=== PATIENT | male | born 1940 | race Caucasian/White ===

== ENCOUNTER 2016-12-23 09:30 | Inpatient (IN) | payer MEDICARE ==
[~2016-12-23] VITALS: Ht 175.3 cm; Wt 82.7 kg
[~2016-12-23 09:30] MED LIST: [UNRECOGNIZED DRUG - CODE] PO
[2016-12-23] MEDS ORDERED: ASPI-147 PO (15:29)
[2016-12-23] MEDS ORDERED: ROSU20 PO (15:29)
[2016-12-23] MEDS ORDERED: PLAV75TA29 PO (15:29)
[2016-12-24] MEDS ORDERED: METOPROLOL TARTRATE 25 MG TAB PO PRN (06:45)
[2016-12-24] MEDS ORDERED: INSULIN HUMAN REGULAR 1,000 UNITS/10 ML VIAL SQ PRN (06:45)
[2016-12-24] MEDS ORDERED: ceFAZolin 1,000 MG/NS 100 ML IV SCH ×2 (06:45)
[2016-12-24] MEDS: SODIUM CHLORID 0.9% 500 ML IV SCH ×2 (06:45→23:25)
[2016-12-24] MEDS: LACTATED RINGER'S 1000 ML IV SCH (07:00)
[2016-12-24 07:05] VITALS: BP 163/90; PULSE 67; RESP 20; TEMP 97.5; O2SAT 99
[2016-12-24 07:05] LABS: AUTOMATED NEUTROPHIL # 4.8 TH/MM3 (1.8-7.7); BASOPHIL # 0.1 TH/MM3 (0-0.2); BASOPHIL % 0.8 % (0.0-2.0); EOSINOPHIL # 0.2 TH/MM3 (0-0.4); EOSINOPHIL % 2.2 % (0.0-4.0); HEMATOCRIT 43.3 % (39.0-51.0); HEMO FLAGS DIFF FINAL; LYMPH % 32.4 % (9.0-44.0); LYMPHOCYTE # 2.8 TH/MM3 (1.0-4.8); MEAN CELL VOLUME 84.1 FL (80.0-100.0); MEAN CORPUSCULAR HEMOGLOBIN 28.3 PG (27.0-34.0); MEAN CORPUSCULAR HGB CONC 33.6 % (32.0-36.0); MONO % 9.7 % (0.0-8.0); NEUT % 54.9 % (16.0-70.0); PLATELET COUNT 225 TH/MM3 (150-450); RED BLOOD COUNT 5.15 MIL/MM3 (4.50-5.90); RED CELL DISTRIBUTION WIDTH 13.9 % (11.6-17.2); WHITE BLOOD COUNT 8.7 TH/MM3 (4.0-11.0)
[2016-12-24 07:17] LABS: APTT (PATIENT) 27.5 SEC (24.3-30.1); PROTHROMBIN TIME - PATIENT 10.5 SEC (9.8-11.6)
[2016-12-24 07:20] LABS: BICARBONATE 26.4 MEQ/L (21.0-32.0); POTASSIUM 4.2 MEQ/L (3.5-5.1)
[2016-12-24] MEDS ORDERED: BUPIVACAINE/EPINEPHRINE 0.5% PF 30 ML VIAL ONE (07:36)
[2016-12-24] MEDS ORDERED: HEPARIN SODIUM - IV 10,000 UNITS/10 ML VIAL ONE (07:36)
[2016-12-24] MEDS ORDERED: HEPARIN SODIUM - SQ 10,000 UNITS/ML VIAL ONE (07:36)
[2016-12-24] MEDS ORDERED: PROTAMINE SULFATE 50 MG/5 ML VIAL ONE (07:37)
[2016-12-24] MEDS ORDERED: MIDAZOLAM HCL 2 MG/2 ML VIAL ONE (08:08)
[2016-12-24] MEDS ORDERED: FAMOTIDINE 20 MG/2 ML VIAL ONE (08:08)
[2016-12-24] MEDS ORDERED: DEXAMETHASONE SOD PHOS 4 MG/ML VIAL ONE (08:09)
[2016-12-24] MEDS ORDERED: *morphine SULFATE 8 MG/ML PERIprocedure ONLY ONE (11:13)
[2016-12-24] MEDS ORDERED: DO NOT ADM ANY ANTICOAGULANT DRUGS XX PRN (11:16)
[2016-12-24] MEDS ORDERED: fentaNYL CITRATE 250 MCG/5 ML AMP ONE (11:21)
[2016-12-24] MEDS ORDERED: *LABETALOL HCL 100 MG/20 ML VIAL PERIprocedural Use ONLY ONE ×2 (11:26→12:28)
[2016-12-24] MEDS ORDERED: ACETAMINOPHEN/HYDROcodone 325 MG/5 MG TAB PO PRN (11:45)
[2016-12-24] MEDS ORDERED: ACETAMINOPHEN 325 MG TAB PO PRN (11:45)
[2016-12-24] MEDS ORDERED: SODIUM CHLORIDE 0.9% FLUSH 5 ML FLUSH IV FLUSH PRN (11:45)
[2016-12-24] MEDS ORDERED: ONDANSETRON HCL 4 MG/2 ML VIAL IV PUSH PRN (11:45)
[2016-12-24] MEDS ORDERED: PHENYLEPHRINE HCL 10 MG/ML VIAL IV ONE (12:00)
[2016-12-24] MEDS ORDERED: PROPOFOL 200 MG/20 ML AMP IV ONE (12:00)
[2016-12-24] MEDS ORDERED: NEOSTIGMINE 3 MG/3 ML SYR IV ONE (12:00)
[2016-12-24] MEDS ORDERED: LACTATED RINGER'S 1000 ML INJ 1,000 ML IV ONE (12:00)
[2016-12-24] MEDS ORDERED: SODIUM CHLORID 0.9% 500 ML INJ 500 ML IV ONE (12:00)
[2016-12-24] MEDS ORDERED: PHENYLEPH/NS 1000 MCG/10 ML SYR IV ONE (12:00)
[2016-12-24] MEDS ORDERED: ONDANSETRON HCL 4 MG/2 ML VIAL IV PUSH ONE (12:00)
[2016-12-24] MEDS ORDERED: SODIUM CHLOR 0.9% 250 ML INJ 250 ML IV ONE (12:00)
[2016-12-24] MEDS: MORPHINE SULFATE 4 MG/ML INJ IV PRN ×2 (13:00→18:30)
[2016-12-24] MEDS: SODIUM CHLORIDE 0.9% FLUSH 5 ML FLUSH IV FLUSH SCH (21:00)
[2016-12-24] MEDS ORDERED: ATORVASTATIN 40 MG TAB PO SCH (21:00)
[2016-12-24 23:30] VITALS: BP 151/90; PULSE 70; RESP 18; TEMP 97.5; O2SAT 99
[2016-12-25] MEDS: LACTATED RINGER'S 1000 ML IV SCH (06:45)
[2016-12-25] MEDS ORDERED: NILOTINIB PO SCH (09:00)
[2016-12-25] MEDS ORDERED: CLOPIDOGREL 75 MG TAB PO SCH (09:00)
[2016-12-25] MEDS: SODIUM CHLORIDE 0.9% FLUSH 5 ML FLUSH IV FLUSH SCH (09:00)
[2016-12-25 11:00] VITALS: BP 159/89; PULSE 73; RESP 17; TEMP 98.5; O2SAT 95
[2016-12-25] MEDS ORDERED: TAMS5CAP PO (14:37)
--- NOTE | 2016-12-26 05:54 | MP ---
cc: MELY RAWLS M.D., JAMES T. M.D. REES, RYAN R. M.D. DATE OF SURGERY December 24, 2016 PREOPERATIVE DIAGNOSIS Critical, symptomatic left carotid stenosis - status post recent left middle cerebral artery distribution infarction. POSTOPERATIVE DIAGNOSIS Critical, symptomatic left carotid stenosis - status post recent left middle cerebral artery distribution infarction. OPERATIVE PROCEDURE Left carotid endarterectomy with bovine patch angioplasty. SURGEON Javed Long MD NEWS COPY EDITOR DOROTHY Villalobos ANESTHESIA General endotracheal. DESCRIPTION OF THE OPERATIVE PROCEDURE With the patient in the supine position general endotracheal anesthesia was induced, the cervical spine extended, rotated to the right, left anterior cervical area prepped with Betadine and draped in a sterile fashion. One gram of Ancef was administered intravenously and, following a protocol time-out, the skin and subcutaneous tissue along the proposed incisional area was preemptively infiltrated with 0.5% Marcaine with epinephrine. A curvilinear incision was performed along the anterior border of the sternocleidomastoid and deepened through the underlying platysma. The sternocleidomastoid and internal jugular vein were mobilized laterally. The common internal, external carotid and superior thyroid arteries were circumferentially mobilized and encircled with vessel loops, care taken to identify and protect the hypoglossal and vagus nerves. The patient was systemically heparinized with 5000 units. The superior thyroid, external and internal carotid arteries were sequentially occluded with Yasargil clips, proximal common carotid artery occluded with an angled DeBakey vascular clamp. A vertical arteriotomy was performed along the anterolateral surface of the common carotid and extended well into the internal carotid, across a soft, concentric plaque with subintimal hemorrhage/hematoma extending from the common into the internal carotid producing at least 90% occlusion of the internal carotid lumen. In addition the internal carotid distal to the stenosis was diminished in diameter, typical of diminished perfusion pressures over an extended period of time. A Arnoldo shunt was introduced and secured with Arnoldo shunt clamps, care taken to avoid air or atheroembolization. The plaque was cleanly and completely endarterectomized. The remaining neolumen was copiously irrigated with heparinized saline. A bovine patch was secured to the endarterectomy incision with continuous 6-0 Prolene. Prior to placement of the final sutures the Arnoldo shunt was removed, the arterial lumen appropriately flushed, final sutures placed and tied. Pulsatile flow was reestablished first into the external and secondly into the internal carotid as confirmed by Doppler signal. The platysmal fascia was reapproximated with continuous 4-0 Monocryl. The skin was reapproximated with continuous subcuticular 5-0 Monocryl, reinforced with Steri-Strips and covered with sterile gauze. Instrument, needle and sponge count correct x 2. No operative complications. The patient returned to the recovery room in stable condition having tolerated the procedure well. MD WEI Jerome/ALANA /4:15 PM /5:45 AM
== END 2016-12-25 14:53 | disposition home or self-care (01) | DRG 38 ==
LOC: HSDI 12-24 06:04 → HCIN 12-25 10:43
PROVIDERS: ADMIT Surgery Vascular Surgery; ATTEND Surgery Vascular Surgery
PROC: 03CL0ZZ Extirpation of Matter from Left Internal Carotid Artery, Open Approach (ICD-10-PCS; 2016-12-24)
PROC: 03UJ0KZ Supplement Left Common Carotid Artery with Nonautologous Tissue Substitute, Open Approach (ICD-10-PCS; 2016-12-24)
PROC: 03UL0KZ Supplement Left Internal Carotid Artery with Nonautologous Tissue Substitute, Open Approach (ICD-10-PCS; 2016-12-24)
PROC: 03CJ0ZZ Extirpation of Matter from Left Common Carotid Artery, Open Approach (ICD-10-PCS; principal; 2016-12-24 08:13)
DX: I65.22 Occlusion and stenosis of left carotid artery (principal); C92.10 Chronic myeloid leukemia, BCR/ABL-positive, not having achieved remission; Z92.21 Personal history of antineoplastic chemotherapy; E89.0 Postprocedural hypothyroidism; Z86.73 Personal history of transient ischemic attack (TIA), and cerebral infarction without residual deficits; E78.5 Hyperlipidemia, unspecified; I10 Essential (primary) hypertension; Z95.810 Presence of automatic (implantable) cardiac defibrillator; H54.0 Blindness, both eyes; H35.52 Pigmentary retinal dystrophy; Z87.891 Personal history of nicotine dependence
CPT/HCPCS: 36415; 80048; 85025; 85610; 85730; 86850; 86900; 86901; J0690; J1100; J1644; J2250; J2270; J2370; J2405; J2710; J2720; J3010; J7040; J7050; J7120